=== PATIENT | male | born 1990 | race Caucasian/White ===

== ENCOUNTER 2016-08-16 04:42 | Emergency (ER) | payer SELFPAY ==
--- NOTE | 2016-08-16 04:46 | ED NURSING NOTES ---
Clinical Report - Nurses [place] [place] [address] 08/16/2016 4:41 Patient: GUADALUPE VALDEZ TRIAGE Triage time 0444. Acuity: LEVEL 4. Chief Complaint: FALL (pt tackled by police when arrested). --04:46 Gilson Dickson R.N. 04:51 08/16/16. BP: unable to obtain due to patient condition. HR: unable to obtain due to patient condition. RR: 16 (regular and unlabored). O2 saturation: unable to obtain due to patient condition. Temp: unable to obtain due to patient condition. Pain level now: 0/10. Patient is conversant. --04:53 Gilson Dickson R.N. Weight: 68 kg estimated. Height/Length: 72 inches Per Patient. BMI: 20.3. --04:45 Gilson Dickson R.N. Medications None. --04:45 Gilson Dickson R.N. Allergies No Known Drug Allergy. --04:45 Gilson Dickson R.N. History Historian: patient. Arrived in police custody and accompanied by police. This occurred just prior to arrival. 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 Trauma activation: Pre-hospital notification of patient arrival was not received. SOCIAL HX: Heavy tobacco smoker- 1 pack per day. History of drug use. (refuses to answer). No alcohol use. FALL RISK ASSESSMENT: Fall risk assessment completed. No fall risk identified. NUTRITIONAL RISK ASSESSMENT: The nutritional risk assessment revealed no deficiencies. FUNCTIONAL ASSESSMENT: Functional assessment: no impairments noted. LEARNING NEEDS ASSESSMENT: The learning needs assessment revealed no barriers. SKIN INTEGRITY ASSESSMENT: Skin integrity risk assessment completed. No skin integrity risk identified. --04:46 Gilson Dickson R.N. ( pt refusing to answer questions or cooperate with assessment other than MD physical assessment.). --04:54 Gilson Dickson R.N. PROBLEMS: Hypovolemia. Dizziness. --04:45 Gilson Dickson R.N. PHYSICAL ASSESSMENT GENERAL / NEURO / PSYCH: Alert. Oriented X 4. Appears in no acute distress. HEENT: Pupils equal, round and reactive to light. Head non-tender. Nose: erythema. RESPIRATORY: Respirations not labored. Chest nontender. CVS: Pulses within normal limits. Capillary refill less than 2 seconds. GI / : Abdomen soft. EXTREMITIES: Extremities exhibit normal ROM. Neuro-vascular status intact to the extremity. Right knee: tenderness and ecchymosis. SKIN: Skin intact. Skin is warm and dry. --04:51 Gilson iDckson R.N. NURSING PROGRESS NOTES Reassurance given. Patient identifiers checked. Bed placed in lowest position. Brakes of bed on. --04:51 Gilson Dickson R.N. DISPOSITION / DISCHARGE Condition at departure: stable. No learning barriers present. Reviewed warnings. Patient verbalized understanding. Written instructions provided in Sami. The patient was discharged by the physician. He was discharged to police department facility and accompanied by a police escort. He left the Emergency Department ambulatory and via police department vehicle. Driving (police). --04:55 Gilson Dickson R.N. Locked/Released at 08/16/2016 4:57 by Gilson Dickson R.N.
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
--- NOTE | 2016-08-16 04:46 | ED NURSING NOTES ---
Clinical Report - Nurses [place] [place] [address] 08/16/2016 4:41 Patient: GUADALUPE VALDEZ TRIAGE Triage time 0444. Acuity: LEVEL 4. Chief Complaint: FALL (pt tackled by police when arrested). --04:46 Gilson Dickson R.N. 04:51 08/16/16. BP: unable to obtain due to patient condition. HR: unable to obtain due to patient condition. RR: 16 (regular and unlabored). O2 saturation: unable to obtain due to patient condition. Temp: unable to obtain due to patient condition. Pain level now: 0/10. Patient is conversant. --04:53 Gilson Dickson R.N. Weight: 68 kg estimated. Height/Length: 72 inches Per Patient. BMI: 20.3. --04:45 Gilson Dickson R.N. Medications None. --04:45 Gilson Dickson R.N. Allergies No Known Drug Allergy. --04:45 Gilson Dickson R.N. History Historian: patient. Arrived in police custody and accompanied by police. This occurred just prior to arrival. 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 Trauma activation: Pre-hospital notification of patient arrival was not received. SOCIAL HX: Heavy tobacco smoker- 1 pack per day. History of drug use. (refuses to answer). No alcohol use. FALL RISK ASSESSMENT: Fall risk assessment completed. No fall risk identified. NUTRITIONAL RISK ASSESSMENT: The nutritional risk assessment revealed no deficiencies. FUNCTIONAL ASSESSMENT: Functional assessment: no impairments noted. LEARNING NEEDS ASSESSMENT: The learning needs assessment revealed no barriers. SKIN INTEGRITY ASSESSMENT: Skin integrity risk assessment completed. No skin integrity risk identified. --04:46 Gilson Dickson R.N. ( pt refusing to answer questions or cooperate with assessment other than MD physical assessment.). --04:54 Gilson Dickson R.N. PROBLEMS: Hypovolemia. Dizziness. --04:45 Gilson Dickson R.N. PHYSICAL ASSESSMENT GENERAL / NEURO / PSYCH: Alert. Oriented X 4. Appears in no acute distress. HEENT: Pupils equal, round and reactive to light. Head non-tender. Nose: erythema. RESPIRATORY: Respirations not labored. Chest nontender. CVS: Pulses within normal limits. Capillary refill less than 2 seconds. GI / : Abdomen soft. EXTREMITIES: Extremities exhibit normal ROM. Neuro-vascular status intact to the extremity. Right knee: tenderness and ecchymosis. SKIN: Skin intact. Skin is warm and dry. --04:51 Gilson Dickson R.N. NURSING PROGRESS NOTES Reassurance given. Patient identifiers checked. Bed placed in lowest position. Brakes of bed on. --04:51 Gilson Dickson R.N. DISPOSITION / DISCHARGE Condition at departure: stable. No learning barriers present. Reviewed warnings. Patient verbalized understanding. Written instructions provided in Icelandic. The patient was discharged by the physician. He was discharged to police department facility and accompanied by a police escort. He left the Emergency Department ambulatory and via police department vehicle. Driving (police). --04:55 Gilson Dickson R.N. Locked/Released at 08/16/2016 4:57 by Gilson Dickson R.N.
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
--- NOTE | 2016-08-16 07:51 | ED MAR SUMMARY ---
..... Medication Administration Record [facility] [address], [place] [id number] Patient: GUADALUPE VALDEZ Visit ID: [id number] 26y, M Weight: 68.0 kg Height/Length: 72 in BMI: 20.3 ALLERGIES: No Known Drug Allergy
--- NOTE | 2016-08-16 07:51 | ED DISCHARGE INSTRUCTIONS ---
Patient: GUADALUPE VALDEZ General Instructions [facility] VisitID: [id number] [place] [address] 26y, M Registration Date/Time: 08/16/2016 Single contusion to the right knee. INSTRUCTIONS Apply ice for 20 minutes three times a day as needed and until better. Don't apply ice directly to skin and don't use while asleep. (CLEAR TO BOOK.). Warnings: GENERAL WARNINGS: Return or contact your physician immediately if your condition worsens or changes unexpectedly, if not improving as expected, or if other problems arise. Follow-up: Follow up with your doctor as needed. Understanding of the discharge instructions verbalized by patient. ADDITIONAL INFORMATION Contusion,Soft Tissue You have a CONTUSION, which is a bruise with swelling and some bleeding under the skin. There are no broken bones. This injury takes a few days to a few weeks to heal. Home Care: 1) Keep the injured part elevated to reduce pain and swelling. This is especially important during the first 48 hours. 2) Make an ice pack (ice cubes in a plastic bag, wrapped in a towel) and apply for 20 minutes every 1-2 hours the first day. Continue this 3-4 times a day until the pain and swelling goes away. 3) You may use acetaminophen (Tylenol) or ibuprofen (Motrin, Advil) to control pain, unless another pain medicine was prescribed. [ NOTE : If you have chronic liver or kidney disease or ever had a stomach ulcer or GI bleeding, talk with your doctor before using these medicines.] Follow Up with your doctor or this facility if you are not improving within the next THREE days. [NOTE: If X-rays were taken, they will be reviewed by a radiologist. You will be notified of any new findings that may affect your care.] Get Prompt Medical Attention if any of the following occur: -- Pain or swelling increases -- Injured arm or leg becomes cold, blue, numb or tingly -- Redness, warmth or drainage from the skin You have been given the following additional information: Contusion, Soft Tissue (Electronically signed by Edith Davila MD 08/16/2016 7:51)
--- NOTE | 2016-08-16 07:51 | ED MED RECONCILIATION SUMMARY ---
Patient: GUADALUPE VALDEZ Medication Reconciliation Report [facility] VisitID: [id number] [address] [place] [address] 26y, M Registration Date/Time: 08/16/2016 Weight: 68.0 kg Height/Length: 72 in. BMI: 20.3 ALLERGIES: No Known Drug Allergy The patient's Home Medications are listed below: NONE. The source(s) of the original Home Medication information: Not obtained. The following Medications were given to the patient in the Emergency Department: None. The following Medications were prescribed to the patient: None.
--- NOTE | 2016-08-16 07:51 | ED DISCHARGE INSTRUCTIONS ---
Patient: GUADALUPE VALDEZ General Instructions [facility] VisitID: [id number] [place] [address] 26y, M Registration Date/Time: 08/16/2016 Single contusion to the right knee. INSTRUCTIONS Apply ice for 20 minutes three times a day as needed and until better. Don't apply ice directly to skin and don't use while asleep. (CLEAR TO BOOK.). Warnings: GENERAL WARNINGS: Return or contact your physician immediately if your condition worsens or changes unexpectedly, if not improving as expected, or if other problems arise. Follow-up: Follow up with your doctor as needed. Understanding of the discharge instructions verbalized by patient. ADDITIONAL INFORMATION Contusion,Soft Tissue You have a CONTUSION, which is a bruise with swelling and some bleeding under the skin. There are no broken bones. This injury takes a few days to a few weeks to heal. Home Care: 1) Keep the injured part elevated to reduce pain and swelling. This is especially important during the first 48 hours. 2) Make an ice pack (ice cubes in a plastic bag, wrapped in a towel) and apply for 20 minutes every 1-2 hours the first day. Continue this 3-4 times a day until the pain and swelling goes away. 3) You may use acetaminophen (Tylenol) or ibuprofen (Motrin, Advil) to control pain, unless another pain medicine was prescribed. [ NOTE : If you have chronic liver or kidney disease or ever had a stomach ulcer or GI bleeding, talk with your doctor before using these medicines.] Follow Up with your doctor or this facility if you are not improving within the next THREE days. [NOTE: If X-rays were taken, they will be reviewed by a radiologist. You will be notified of any new findings that may affect your care.] Get Prompt Medical Attention if any of the following occur: -- Pain or swelling increases -- Injured arm or leg becomes cold, blue, numb or tingly -- Redness, warmth or drainage from the skin You have been given the following additional information: Contusion, Soft Tissue (Electronically signed by Edith Davila MD 08/16/2016 7:51)
--- NOTE | 2016-08-16 07:51 | ED MED RECONCILIATION SUMMARY ---
Patient: GUADALUPE VALDEZ Medication Reconciliation Report [facility] VisitID: [id number] [address] [place] [address] 26y, M Registration Date/Time: 08/16/2016 Weight: 68.0 kg Height/Length: 72 in. BMI: 20.3 ALLERGIES: No Known Drug Allergy The patient's Home Medications are listed below: NONE. The source(s) of the original Home Medication information: Not obtained. The following Medications were given to the patient in the Emergency Department: None. The following Medications were prescribed to the patient: None.
--- NOTE | 2016-08-16 07:51 | ED MAR SUMMARY ---
..... Medication Administration Record [facility] [address], [place] [id number] Patient: GUADALUPE VALDEZ Visit ID: [id number] 26y, M Weight: 68.0 kg Height/Length: 72 in BMI: 20.3 ALLERGIES: No Known Drug Allergy
== END 2016-08-16 05:00 ==
LOC: ED SRH 04:42
DX: S80.01XA Contusion of right knee, initial encounter (principal); Y35.393A Legal intervention involving other blunt objects, suspect injured, initial encounter; Y92.410 Unspecified street and highway as the place of occurrence of the external cause; Y99.8 Other external cause status; Z02.89 Encounter for other administrative examinations